=== PATIENT | male | born 1995 | race Two or more races ===

== ENCOUNTER 2018-10-22 23:00 | Emergency (ER) | payer BC ==
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
--- NOTE | 2018-10-22 23:52 | CR ---
Indication: Trauma Technique: Three views of the right hand Comparison: None available Findings/Impression: Bones: A small calcific density adjacent to the 5th carpometacarpal articulation, suggestive of a fracture fragment, which may be related to the ulnar aspect of the hamate or the base of the 5th metacarpal. Correlate for regional tenderness. No dislocation. Widening of the scapholunate interval suggestive of scapholunate dissociation, of unclear chronicity. Joint spaces: Unremarkable. Soft tissues: Dorsal soft tissue swelling. Dictated by Brian Estevez MD @ 10/22/2018 11:49:24 PM Dictated by: Brian Estevez MD @ 10/22/2018 23:49:29 (Electronically Signed)
== END 2018-10-23 00:10 | disposition home or self-care (01) ==
LOC: MW.ED 23:00
DX: S61.411A Laceration without foreign body of right hand, initial encounter (principal); W23.0XXA Caught, crushed, jammed, or pinched between moving objects, initial encounter
CPT/HCPCS: 73130-26-RT; 73130-RT; 99283-25

== ENCOUNTER 2023-03-22 19:44 | Emergency (ER) | payer SELFPAY | END 2023-03-22 21:14 | disposition home or self-care (01) | LOC: MW.ED 19:44 | DX: T33.821A Superficial frostbite of right foot, initial encounter (principal); S90.821A Blister (nonthermal), right foot, initial encounter; R03.0 Elevated blood-pressure reading, without diagnosis of hypertension; X31.XXXA Exposure to excessive natural cold, initial encounter | CPT/HCPCS: 99283 ==

== ENCOUNTER 2023-03-25 22:53 | Emergency (ER) | payer OTHER ==
[2023-03-25] MEDS ORDERED: amLODIPine 2.5 MG Tab PO ONE (23:15)
[2023-03-25 23:28] LABS: BASOPHILS ABSOLUTE AUTO 0.02 K/uL (0.00-0.20); BASOPHILS PERCENT AUTO 0.3 % (0.0-1.0); EOSINOPHILS ABSOLUTE AUTO 0.16 K/uL (0.00-0.45); EOSINOPHILS PERCENT AUTO 2.8 % (0.0-6.0); HEMATOCRIT 41.8 % (42.0-52.0); HEMOGLOBIN 14.2 g/dL (14.0-18.0); IMMATURE GRAN ABSOLUTE AUTO 0.01 K/uL (0.00-0.05); IMMATURE GRAN PERCENT AUTO 0.2 % (0.0-0.4); LYMPHOCYTES ABSOLUTE AUTO 2.92 K/uL (1.00-4.80); LYMPHOCYTES PERCENT AUTO 50.9 % (24.0-44.0); MEAN CORPUSCULAR HEMOGLOBIN 28.3 pg (28.0-32.0); MEAN CORPUSCULAR VOLUME 83.3 fL (83.0-99.0); MONOCYTES ABSOLUTE AUTO 0.49 K/uL (0.00-0.80); MONOCYTES PERCENT AUTO 8.5 % (0.0-8.0); NEUTROPHILS ABSOLUTE AUTO 2.14 K/uL (1.80-7.70); NEUTROPHILS PERCENT AUTO 37.3 % (41.0-71.0); PLATELET COUNT,PLT 217 K/uL (150-400); RED BLOOD CELL COUNT 5.02 M/uL (4.52-5.90); WHITE BLOOD CELL COUNT,WBC 5.74 K/uL (3.9-11.3)
[2023-03-26 00:04] LABS: A/G RATIO 1.2 (0.9-1.6); ALBUMIN 4.4 g/dL (3.4-5.0); BILIRUBIN TOTAL 0.6 mg/dL (0.2-1.0); CALCIUM 9.4 mg/dL (8.5-10.1); EST CRCL DRUG DOSING (CG) 106.4 mL/min
[2023-03-26 00:05] LABS: POTASSIUM,K 4.2 mmol/L (3.5-5.1)
== END 2023-03-26 00:13 | disposition home or self-care (01) ==
LOC: MW.ED 22:53
DX: I10 Essential (primary) hypertension (principal); Z79.899 Other long term (current) drug therapy
CPT/HCPCS: 36415; 80053; 85025; 99283; A9270

== ENCOUNTER 2023-11-23 00:10 | Emergency (ER) | payer SELFPAY | END 2023-11-23 02:00 | LOC: MW.ED 00:10 | DX: M25.532 Pain in left wrist (principal); R04.0 Epistaxis; Y09 Assault by unspecified means | CPT/HCPCS: 73110-26-LT; 73110-LT; 99283 ==

== ENCOUNTER 2024-05-09 04:02 | Emergency (ER) | payer MEDICAID ==
[2024-05-09] MEDS: Acetaminophen 500 MG Tab PO ONE (04:18)
== END 2024-05-09 04:21 ==
LOC: MW.ED 04:02
DX: M25.511 Pain in right shoulder (principal); M25.512 Pain in left shoulder; G89.29 Other chronic pain
CPT/HCPCS: 99284; A9270; 99282